=== PATIENT | female | born 2005 | race Caucasian/White ===

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

== ENCOUNTER 2025-04-19 09:31 | Outpatient (AMB) | payer BC, SELFPAY ==
--- NOTE | 2025-04-19 09:32 | A.OFFPC_ITS ---
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 Required: No Accompanied by: Self / Same As Patient Allergies No Known Allergies Allergy (Verified 04/19/25 10:00) Medication List - Last Reconciled 04/19/25 by Tiffanie Bishop PA-C fluoxetine 20 mg PO DAILY hydroxyzine HCl 25 mg PO BEDTIME norethindrone ac-eth estradiol 1.5-30 mg-mcg (Lona) tabs PO triamcinolone acetonide 0.1% 1 appl topical BID-TID Tobacco use date assessed: 04/19/25 Dental Screening Dental Screen Date: 04/19/25 Did you have a dental visit in the last 12 months?: Yes Did you have a dental problem in the last 6 months where you did not have access to dental care?: No Was dental information given to patient?: Patient has dentist HPI Establish Care HPI Details The patient is a 19-year-old female patient presenting to establish a new primary care provider along with medication refill and management. She has a well-documented history of generalized anxiety disorder, successfully managed with Fluoxetine and Hydroxyzine for nearly two years. The current regimen appears effective as indicated by low anxiety scores, and she seeks extended refills due to plans for international study. The patient also presents with a dermatologic issue, specifically polymorphic light eruption, which manifests as hives in early summer, controlled with a prescribed topical ointment used only as needed. She reports a significant family history of breast, ovarian, and uterine cancers on the maternal side, and colon cancer in her paternal line. Her paternal grandmother's early from colon cancer and possibly her maternal grandmother?s from colon-related cancer signal a need for vigilance in h ereditary cancer screening. Past blood work concerns include a note of high cholesterol from pediatric examination, with no subsequent monitoring reported. Social History - Education: Currently a bio major, stud [employer] abroad in [place]. - Exercise: Regular workout. - Family: Aunt with histories of breast and ovarian cancer. - Family Planning: On control, no internal exam yet, plans to discuss early screening with LEGISLATIVE AIDE. - Functional Status: No reported limitat ions. - Nutrition: Relatively healthy diet and exercise routine. - Family History: Significant cancer his tory (breast, ovarian, uterine, and colon) requiring monitoring. - Substance Use: Denied. [facility] Medical History Family history of colon cancer Family history of uterine cancer Family history of ovarian cancer Family history of breast cancer Anxiety Polymorphic light eruption Establishing care with new doctor, encounter for Family History Father Skin cancer Mother High cholesterol Maternal Aunt Ovarian cancer Breast cancer Paternal Grandmother Colon cancer Paternal Grandfather High cholesterol S/P triple vessel bypass Social History Housing: House Alcohol intake: current Alcohol intake frequency: holidays/special occasions only Patient Tobacco Use Status: Never used Tobacco e-Cigarette/Vaping Use: Never Used service: No Current occupational status: employed and student Cognitive needs: No Hearing needs: No Vision needs: Yes (rx glasses) Questionnaire PHQ-9 Over the last 2 weeks, how often have you been bothered by any of the following problems? 1. Little interest or pleasure in doing things: not at all 2. Feeling down, depressed, or hopeless: not at all 3. Trouble falling or staying asleep, or sleeping too much: not at all 4. Feeling tired or having little energy: not at all 5. Poor appetite or overeating: not at all 6. Feeling bad about yourself - or that you are a failure or have let yourself or your family down: not at all 7. Trouble concentrating on things, such as reading the newspaper or watching television: not at all 8. Moving or speaking so slowly that other people could have noticed. Or the opposite - being so fidgety or restless that you have been moving around a lot more than usual: not at all 9. Thoughts that you would be better off or of hurting yourself in some way: not at all Total score: 0 Depression Screening Interpretation: Negative Depression Screening Done: Yes 98489 - PHQ-9 Billing: Yes Source: Developed by Drs. Low Bains, Hallie Palomino, John Lomeli and colleagues, with an educational jass from [employer]. Thrive Questionnaire Date Thrive assessed: 04/19/25 I am a: Patient What is your living situation today?: I have a steady place to live Within the past 12 months, did the food you bought not last and you didn't have the money to get more?: Never true Within the past 12 months, did you worry whether your food would run out before you got money to buy more?: Never true Do you have trouble paying for medicines?: No Do you have trouble getting transportation to medical appointments?: No Do you have trouble paying your heating and electricity bill?: No Do you have trouble taking care of your child, family member or friend?: No Do you have trouble with day-to-day activities such as bathing, preparing meals, shopping, managing finances, etc.?: No Are you currently unemployed and looking for a job?: No Are you interested in more education?: No Currently or been in a relationship where the following occur: No concerns reported THRIVE Score: 0 AUDIT C Alcohol Use Questionnaire (AUDIT-C) 1. How often do you have a drink containing alcohol?: Monthly or less 2. How many drinks containing alcohol do you have on a typical day when you are drinking?: 1 or 2 3. How often do you have six or more drinks on one occasion?: Never Total Score: 1 Score Reviewed/Action Taken: No ETELVINA-7 AMB Questionnaire ETELVINA-7 Date ETELVINA - 7 assessed: 04/19/25 Feeling nervous, anxious, or on edge: 0 = Not at all Not being able to stop or control worryin = Not at all Worrying too much about different things: 0 = Not at all Trouble relaxin = Not at all Being so restless that it is hard to sit still: 0 = Not at all Becoming easily annoyed or irritable: 0 = Not at all Feeling afraid as if something awful might happen: 0 = Not at all Total ETELVINA-7 score (0-4 normal; 5-9 mild; 10-14 moderate; 15-21 severe): 0 Source: Developed by Hallie Wheeler, John Lomeli and colleagues, with an educational jass from [employer]. ETELVINA-7 Assessment Billing ETELVINA-7 Assessment Tool: ETELVINA-7 Assessment 86455 Review of Systems Const Details: - General: Denies unintentional weight changes. - Gastrointestinal: Denies black or bloody stools. - Neurological: Denies visual disturbances, abnormal hearing. - Dermatologic: Reports polymorphic light eruption with hives in summer. - Psychological: Reports anxiety well-controlled with medication. Physical exam (Primary Care) Vital Signs: Last Vital Signs Temp 98.4 F 04/19/25 09:46 Pulse 72 04/19/25 09:46 Resp 14 04/19/25 09:46 BP 106/76 04/19/25 09:46 Pulse Ox 99 04/19/25 09:46 Oxygen Delivery Method Room Air 04/19/25 09:46 Care Plan Goal for BP management: <140/90 at Goal BMI result Body Mass Index 24.4 normal bmi Tobacco/Smoking Status: Tobacco use Status Tobacco use date assessed 04/19/25 04/19/25 09:39 Patient Tobacco Use Status Never used Tobacco 04/19/25 09:52 e-Cigarette/Vaping Use Never Used 04/19/25 09:52 PHQ-9: PHQ-9 Score PHQ-9: Total score 0 04/19/25 09:39 Depression Screening Interpretation: Negative Thrive Assessment: Date of Thrive Assessment Date Thrive assessed 04/19/25 04/19/25 09:39 Currently or been in a relationship where the following occur: No concerns reported Const Other: Appearance: Alert. Oriented X3. No acute distress. Head: Normal external exam. Normocephalic. Atraumatic. Eyes: Pupils are equal, round, and reactive to light. Extraocular movements intact. Conjunctiva and sclera normal. Eyelids normal. Ears: External auditory canal normal. Tympanic membranes normal. Throat: Pharynx normal. Uvula midline. Moist mucous membranes. Neck: Normal inspection. Neck supple. Full range of motion. No adenopathy. Thyroid Normal. No meningeal signs. No neck mass noted. Cardiovascular: Normal heart rate and rhythm. Heart sound normal. No murmurs noted. Pulses normal throughout. Respiratory: No respiratory distress. Painless inspiration. Breath sounds normal. No wheezes/rales/rhonchi noted. Chest nontender. No accessory muscle usage noted or decreased air movement noted. Abdomen: Soft and nontender. Bowel sounds normal in all 4 quadrants. No d istention noted. No organomegaly noted. No visible injury noted. Back: No costovertebral angle tenderness. Full range of motion noted. Skin: Skin warm and dry. Normal skin color. Normal skin turgor. No rashes/lesions/lacerations noted. Extremities: No lower extremity edema. Extremities exhibit normal range of motion. Extremities nontender. Neuro: Oriented X 3. No motor deficit. No sensory deficit. Reflexes normal. Coding Level of Care Code New Pt Level 4 (92447) New Pt Prev Care 18-39yr(73603 Diagnoses Establishing care with new doctor, encounter for Z76.89 Polymorphic light eruption L56.4 Anxiety F41.9 Family history of breast cancer Z80.3 Family history of ovarian cancer Z80.41 Family history of uterine cancer Z80.49 Family history of colon cancer Z80.0 Additional Codes PHQ-9 - 05315 - PHQ-9 Billing: Yes ([id number]) ETELVINA-7 Assessment Billing - ETELVINA-7 Assessment Tool: ETELVINA-7 Assessment 24208 ([id number]) Assessment & Plan Assessment & Plan (1) Establishing care with new doctor, encounter for: Code(s): Z76.89 - Persons encountering health services in other specified circumstances Category: Medical (2) Polymorphic light eruption: Code(s): L56.4 - Polymorphous light eruption Category: Medical (3) Anxiety: Code(s): F41.9 - Anxiety disorder, unspecified Category: Medical (4) Family history of breast cancer: Comment: Maternal aunt Code(s): Z80.3 - Family history of malignant neoplasm of breast Category: Medical (5) Family history of ovarian cancer: Comment: Maternal aunt Code(s): Z80.41 - Family history of malignant neoplasm of ovary Category: Medical (6) Family history of uterine cancer: Comment: Maternal cousin Code(s): Z80.49 - Family history of malignant neoplasm of other genital organs Category: Medical (7) Family history of colon cancer: Comment: Paternal grandmother in her 50s after being diagnosed in her 40s Code(s): Z80.0 - Family history of malignant neoplasm of digestive organs Category: Medical Plan Plan Patient was informed and verbally consented to the use of an ambient scribe for clinic note documentation during this visit. 1. Generalized Anxiety Disorder Fluoxetine refill for 90 days; consideration for 270-tablet refill pending insurance approval for international study duration. Discussed continued management and necessity of ongoing monitoring. 2. Polymorphic Light Eruption Use topical treatment as symptoms arise. Highlighted need for sun protection strategies. 3. Family History Of Breast, Ovarian, And Uterine Cancers Engage staff software engineer for early cancer screening. Suggested genetic counseling due to significant maternal cancer history. 4. Hyperlipidemia Schedule fasting lipid profile. Emphasize lifestyle modifications to manage cholesterol. 5. Family History Of Colon Cancer Gastroenterology referral for early colonoscopy consideration given her hereditary risk. During the consultation, I reviewed the patient's generalized anxiety disorder management, confirming the effectiveness of her current medication regimen. We discussed her need for an extended prescription due to an upcoming study abroad program in [place], presented as an extended management plan to her insurer. After reviewing her dermatologic condition, the patient was advised on the practical use of prescribed topical treatment for her polymorphic light eruption. We addressed her serious family history regarding breast, ovarian, and uterine cancer, recommending that she engage her staff software engineer's advice on early screenings to account for her familial predisposition. I suggested a gastroenterological evaluation due to her grandmother's early onset of colon cancer, recommending that this be conducted sooner than typical screening ages. Given her history of elevated cholesterol, I plan to complete a comprehensive fasting lipid profile to identify and manage any hyperlipidemia proactively. Orders: Orders C Reactive Protein Today Z00.00 - Encounter for general adult medical examination without abnormal findings Hemoglobin A1c Today Z00.00 - Encounter for general adult medical examination without abnormal findings TSH reflex Free T4 Today Z00.00 - Encounter for general adult medical examination without abnormal findings Magnesium Today Z00.00 - Encounter for general adult medical examination without abnormal findings Comprehensive [place]. Panel Fast Today Z00.00 - Encounter for general adult medical examination without abnormal findings Complete Blood Count Auto Diff Today Z00.00 - Encounter for general adult medical examination without abnormal findings Lipid Panel Today Z00.00 - Encounter for general adult medical examination without abnormal findings Liver Panel Today Z00.00 - Encounter for general adult medical examination without abnormal findings Vitamin B12 and Folate Today Z00.00 - Encounter for general adult medical examination without abnormal findings Vitamin D 25-OH Total Today Z00.00 - Encounter for general adult medical examination without abnormal findings IRON PROFILE Today D64.9 - Anemia, unspecified Ferritin Today D64.9 - Anemia, unspecified Referrals Gastroenterology Referral Z12.11 - Encounter for screening for malignant neoplasm of colon Medications: New fluoxetine 20 mg PO DAILY 9 months 270 caps 1RF Patient Instructions: - Continue taking Fluoxetine as prescribed. Plan for refills before your study abroad program. - Use the recommended topical ointment when experiencing hives. - Consult with your staff software engineer about early cancer screenings due to family history. - Schedule and complete the requested blood work, ensuring it's drawn fasting. - Notify me if you experience significant changes in your health. - Engage in regular exercise and maintain a healthy diet to manage cholesterol levels.
[2025-04-19 09:46] VITALS: BP 106/76; PULSE 72; RESP 14; TEMP 36.9; O2SAT 99; BMI 24.4
--- OUTSIDE RECORDS SUMMARY | 2025-04-19 10:25 | XMS_ITS | Encounter Summary ---
Author Organization [facility] Address [address] [place] [id number] Phone Care Team Providers Care Honing Machine Operator Name Role Phone Maira Armas MD Primary Care Provider Encounter Details Date Type Department Care Team (Late st Contact Info) Description 06/02/2013 Documentation [facility] [place] [facility] [address] [place] [address] Family Medicine, Physician [address], [place] [id number] Social History Tobacco Use Types Packs/Day Years Used Date Smoking Tobacco: Never Assessed Comments Unknown Sex and Gender Information Value Date Recorded Sex Assigned at Female 06/27/2022 12:10 PM EDT Legal Sex Female 4:57 PM EDT Gender Identity Female 06/27/2022 12:10 PM EDT Sexual Orientation Straight 06/27/2022 12 :10 PM EDT documented as of this encounter Plan of Treatment Not on file documented as of this encounter Visit Diagnoses Not on filedocumented in this encounter Care Teams Honing Machine Operator Relationship Specialty Start Date End Date Maira Armas MD [address] [place] [address] PCP - General Pediatrics 06/20/22 03/26/25 documented as of this encounter
== END 2025-04-19 10:17 | disposition home or self-care (01) ==
LOC: HO.HMCSH 09:31
PROVIDERS: PCP Internal Medicine; Visit Provider Physician Assistant Medical
DX: Z00.00 Encounter for general adult medical examination without abnormal findings (principal); L56.4 Polymorphous light eruption; F41.9 Anxiety disorder, unspecified; Z80.3 Family history of malignant neoplasm of breast; Z80.41 Family history of malignant neoplasm of ovary; Z80.49 Family history of malignant neoplasm of other genital organs; Z80.0 Family history of malignant neoplasm of digestive organs

== ENCOUNTER 2025-04-19 09:31 | Outpatient (REF) | payer BC, SELFPAY ==
[2025-04-19 10:49] LABS: MANUAL DIFF FLAG NO
[2025-04-19 11:28] LABS: Basophils Percent Auto 0.6 % (0-2); Eosinophils Absolute Auto 0.2 X10*3/uL (0.0-0.4); Eosinophils Percent Auto 2.9 % (0-4); Hematocrit 38.4 % (37.0-47.0); Hemoglobin 12.9 g/dl (12.0-16.0); Imm Gran Abs Auto 0.01 X10*3/uL (0.00-0.03); Imm Gran Pct Auto 0.1 % (0.0-0.4); Lymphocytes Absolute Auto 1.8 X10*3/uL (1.2-4.9); Lymphocytes Percent Auto 25.1 % (20-40); Mean Corpuscular HGB Conc 33.6 g/dl (31.0-35.0); Mean Corpuscular Hemoglobin 28.5 pg (27.0-33.0); Mean Platelet Volume 9.3 fL (9.4-12.3); Monocytes Absolute Auto 0.4 X10*3/uL (0.1-1.2); Monocytes Percent Auto 5.6 % (2-11); Neutrophils Absolute Auto 4.6 x10*3/uL (2.0-8.3); Neutrophils Percent Auto 65.7 % (45-73); Platelet Count 348 X10*3/uL (160-400); Red Blood Count 4.52 X10*6/uL (4.20-5.50); Red Cell Distribution Width 14.4 % (11.0-16.0)
[2025-04-19 11:36] LABS: Estimated Average Glucose 94 mg/dL; Hemoglobin A1c % 4.9 % (<6.0)
[2025-04-19 12:10] LABS: Alanine Aminotransferase 11 U/L (0-31); Albumin Level 4.4 g/dL (3.5-5.0); Alkaline Phosphatase 42 U/L (39-117); Anion Gap 9 (12-20); Aspartate Amino Transferase 17 U/L (5-31); Bilirubin Direct 0.1 mg/dL (0.0-0.5); Bilirubin Total 0.4 mg/dL (0.0-1.0); Blood Urea Nitrogen 12 mg/dL (9-16); C Reactive Protein 0.96 mg/dL (< or = 0.50); Calcium 9.1 mg/dL (8.4-10.2); Carbon Dioxide 23 mmol/L (22-29); Chloride 108 mmol/L (96-108); Cholesterol 216 mg/dL (<200); Estimated Glomerular Filt Rate > 60; Glucose Fasting 81 mg/dL (60-99); HDL Cholesterol 60 mg/dL (>40); Iron 130 mcg/dL (30-160); LDL Cholesterol Calculated 123 mg/dL (<100); Magnesium 2.1 mg/dL (1.6-2.6); Percent Iron Saturation 29 % (15-50); Potassium 3.9 mmol/L (3.3-5.1); Sodium 136 mmol/L (135-145); Total Iron Binding Capacity 443 mcg/dL (228-428); Total Protein 7.1 g/dL (6.5-8.0); Triglycerides 169 mg/dL (<150); Unsaturated Iron Binding 313 ug/dL
[2025-04-19 12:16] LABS: Ferritin 12 ng/mL (10-122); Vitamin D 25-OH Total 49.3 ng/mL (>30)
[2025-04-19 12:26] LABS: Folate 12.7 ng/mL (> or = 4.0); Vitamin B12 283 pg/mL (200-900)
== END 2025-04-19 09:32 | disposition home or self-care (01) ==
LOC: HO.LAB 09:31
PROVIDERS: PCP Internal Medicine; Visit Provider Physician Assistant Medical
DX: D64.9 Anemia, unspecified (principal); L56.4 Polymorphous light eruption; F41.9 Anxiety disorder, unspecified; Z76.89 Persons encountering health services in other specified circumstances; Z80.3 Family history of malignant neoplasm of breast; Z80.41 Family history of malignant neoplasm of ovary; Z80.49 Family history of malignant neoplasm of other genital organs; Z80.0 Family history of malignant neoplasm of digestive organs; Z13.1 Encounter for screening for diabetes mellitus; Z13.6 Encounter for screening for cardiovascular disorders; Z00.00 Encounter for general adult medical examination without abnormal findings
CPT/HCPCS: 36415; 80053; 80061; 80076; 82248; 82306; 82607; 82728; 82746; 83036; 83540; 83735; 84443; 85025; 86140; 96127